=== PATIENT | male | born 1970 | race Caucasian/White ===

== ENCOUNTER 2017-06-17 16:06 | Emergency (ER) | payer SELFPAY ==
[2017-06-17 16:10] VITALS: BP 114/76; BMI 19.3
--- NOTE | 2017-06-17 17:49 | DR.MBACK ---
HPI - Time Seen Time seen: 18:15 - PCP Primary Care Physician: CORETTA - HPI Comment HPI Comment: PATIENT INJURED BACK PULLING. HE HAD POPPING SOUND. INCREASING PAIN SINCE. NO DYSURIA. - Complaint Chief Complaint Doctors Comments: LOWER BACK PAIN TIMES ONE WEEK. Chief Complaint:: PT. C/O LOWER BACK PAIN. PT. WAS PULLING UP A FENCE ABOUT 1 WEEK AGO WHEN THE PAIN INITIALLY STARTED. PT. STATES "I DON'T KNOW IF I'VE PULLED A MUSCLE OR SOMETHING." - Reviewed Nurses Notes Review: Yes - Source History Provided: Patient - Mode of Arrival Mode of Arrival: Ambulatory - Timing Onset of Chief Complaint: 06/10/17 - Duration Duration: Constant Duration: Days - Location Back Pain Location: BACK, Lumbar Radiation To: None - Severity Severity: Moderate - Quality Quality: Aching, Sharp - Context Onset: Bending, Lifting History of: None - Modifying Factors Worsened By: Movement, Twisting - Associated Signs and Symptoms Back Pain Symptoms: None Numbness: None Weakness: None PMH - PMH Past Medical History: No Past Surgical History: No Surgical History: No History - Family History History of Family Medical Conditions: No - Social History Does patient currently use any type of tobacco product: Yes Have you used tobacco products in the last 12 months: Yes Type of Tobacco Use: Cigarettes Does any household member use tobacco: No Alcohol Use: Heavy Do you use any recreational Drugs:: Yes (MARIJUANA) Lives With: Spouse Lives Where: Home - infectious screening In the last 2 months have you had wt loss of >10#?: NO Have you had fever, night sweats or hemotysis?: No Have you traveled outside the country in the last 6 months?: No Isolation: Standard ROS - Review of Systems Constitutional: No Symptoms Reported Eyes: No Symptoms Reported ENTM: No Symptoms Reported Respiratoy: No Symptoms Reported Cardiovascular: No Symptoms Reported Gastrointestinal/Abdominal: No Symptoms Reported Genitourinary: No Symptoms Reported Neurological: No Symptoms Reported Musculoskeletal: Back Pain, Back Integumentary: No Symptoms Reported Hematologic/Lymphatic: No Symptoms Reported Endocrine: No Symptoms Reported All Other Systems: Reviewed and Negative PE - Vital Signs Vitals: Temperature 98.1 F Pulse Rate 82 Respiratory Rate 17 Blood Pressure 114/76 O2 Sat by Pulse Oximetry 93 - General Limitations: No Limitations General Appearance: Alert - Head Head Exam: Normal Inspection - Eyes Eye exam: Normal Appearance - ENT ENT Exam: Normal External Ear Exam - Chest Chest Inspection: Symmetric Chest Wall Rise - Respiratory Respiratory Exam: Normal Lung Sounds Bilat Respiratory Exam: Bilateral Rhonchi, Lower Rhonchi - Cardiovascular Cardiovascular Exam: Regular Rate, Normal Rhythm, Normal Heart Sounds - Abdominal Exam Abdominal Exam: Normal Bowel Sounds, Soft. negative: Tenderness - Rectal Rectal Exam: Deferred - Genitourinary Exam: Male: Deferred - Extremities Extremities Exam: Normal Inspection - Back Back Exam: Paraspinal Tenderness, Vertebral Tenderness (LUMBER SPINE.) - Neurological Neurological Exam: Alert, Oriented X3 - Psychiatric Psychiatric Exam: Normal Affect, Normal Mood - Skin Skin Exam: Normal Color MDM - Additional Information Additional Information Obtained From: Family - Differential Diagnosis Differential Diagnosis: DJD, Fracture, Musculoskeletal Pain, Strain Course - Treatment Treatment: SEE ORDERS. - Education/Counseling Education/Counseling: Patient, Family, Education Educated On: Treatment, Diagnosis, Needs for Follow Up ROR - XRAY XRAY Interpreted by: Radiologist XRAY Findings: REPORT DISCUSS WITH PATIENT. - Diagnosis Discharge Problem: Back strain Qualifiers: Encounter type: initial encounter Qualified Code(s): S39.012A - Strain of muscle, fascia and tendon of lower back, initial encounter - Discharge Plan Disposition: HOME, SELF-CARE Condition: Stable Prescriptions: Cyclobenzaprine HCl [FLEXERIL 10 MG *] 10 mg PO HS PRN #20 tab PRN Reason: Ibuprofen [MOTRIN TAB 600 MG *] 600 mg PO TID PRN #20 tab PRN Reason: Pain/Inflammation Tramadol HCl 50 mg PO Q8H PRN #15 tablet PRN Reason: - Follow ups/Referrals Follow ups/Referrals: [facility],None [Primary Care Provider] - 3 days - Instructions Instructions: Back Pain, Adult, [id number] Additional Instructions: RERTURN TO ED IF WORSE.
[2017-06-17] MEDS ORDERED: NORFLEX INJ IM ONE (17:52)
[2017-06-17] MEDS ORDERED: TORADOL 60 MG VIAL IM ONE (17:52)
[2017-06-17] MEDS ORDERED: TORADOL 60 MG VIAL ONE (18:12)
[2017-06-17] MEDS ORDERED: NORFLEX INJ ONE (18:12)
--- NOTE | 2017-06-17 18:25 | RAD ---
LUMBAR SPINE RADIOGRAPHS CLINICAL HISTORY: 46-year-old male with low back pain. COMPARISON: None. FINDINGS: The most caudad, fully-formed intervertebral disc will be labeled L5-S1 for the purpose of this dictation. 3 views of the lumbar spine were obtained. There are 5 nonrib-bearing lumbar type gunjan tebral bodies. Normal lumbar lordosis is maintained. Vertebral body heights are maintained. The inte rvertebral disc space heights are preserved. There is no sacroiliac diastasis. IMPRESSION: No compression fracture deformity or malalignment on screening lumbar spine radiographs. Reported By:
== END 2017-06-17 18:50 | disposition home or self-care (01) ==
LOC: ER 16:15
DX: S39.012A Strain of muscle, fascia and tendon of lower back, initial encounter (principal); Y93.89 Activity, other specified; Y92.9 Unspecified place or not applicable
CPT/HCPCS: 72100; 96372; 99282; 99284; J1885; J2360